=== PATIENT | female | born 1960 | race Caucasian/White ===

== ENCOUNTER 2017-02-05 04:03 | Emergency (ER) | payer BC ==
--- NOTE | 2017-02-05 04:30 | EDM.PDOC ---
ED HPI GENERAL MEDICAL PROBLEM - General Chief Complaint: Back Pain or Injury Stated Complaint: PAIN UNDER RIBCAGE AND RADIATING DOWN BACK Time Seen by Provider: 02/05/17 04:29 - History of Present Illness INITIAL COMMENTS - FREE TEXT/NARRATIVE: 56-year-old female presents emergency room with upper abdominal and back discomfort This started just before midnight this evening. She describes it as being epigastric and radiating into her upper back. She has not had any associated vomiting with this perhaps mild nausea. No other abdominal discomfort. She denies any recent illnesses. She's felt fairly well. Denies chest discomfort no breathing difficulties or shortness of breath. Past medical history is noncontributory her mother was a heavy smoker and had heart disease in her 60s. Patient's father had heart disease in his 70s. Upper Abdomen Pain Score (Numeric/FACES): 6 - Related Data Allergies Allergy/AdvReac Type Severity Reaction Status Date / Time No Known Allergies Allergy Verified 02/05/17 04:33 Home Meds: Home Meds . [No Known Home Meds] 02/05/17 [History] ED ROS GENERAL - Review of Systems Review Of Systems: See Below Constitutional: Reports: No Symptoms Respiratory: Reports: No Symptoms Cardiovascular: Reports: No Symptoms GI/Abdominal: Reports: Abdominal Pain, Nausea. Denies: Black Stool, Bloody Stool, Constipation, Diarrhea, Difficulty Swallowing, Hematemesis, Hematochezia , Vomiting : Reports: No Symptoms Musculoskeletal: Reports: No Symptoms Neurological: Reports: No Symptoms ED EXAM, GENERAL - Physical Exam Exam: See Below Exam Limited By: No Limitations General Appearance: Alert, No Apparent Distress Head: Atraumatic, Normocephalic Neck: Normal Inspection, Supple, Non-Tender, Full Range of Motion. No: Lymphadenopathy (L), Lymphadenopathy (R) Respiratory/Chest: No Respiratory Distress, Lungs Clear, Normal Breath Sounds, Chest Non-Tender Cardiovascular: Regular Rate, Rhythm, No Edema, No Murmur GI/Abdominal: Normal Bowel Sounds, Soft, Other (She has some epigastric discomfort and discomfort over her stomach. Directed palpation over the gallbladder does not cause any discomfort no other abdominal discomfort noted no rebound or guarding.) Back Exam: Normal Inspection, Other (Palpation over the area in her thoracic spine and back does not elicit the pain she was having and is for the most part nontender.). No: CVA Tenderness (L), CVA Tenderness (R), Paraspinal Tenderness , Vertebral Tenderness EKG INTERPRETATION EKG Date: 02/05/17 Rhythm: NSR [place]: normal P-wave: present QRS: other (Normal QRS low voltage in the extremity leads) ST-T: normal QT: normal Comparison: NA - no prior EKG Course - Vital Signs Last Recorded V/S: Last Vital Signs Temp 36.1 C 02/05/17 04:31 Pulse 59 L 02/05/17 04:31 Resp 13 02/05/17 04:31 BP 152/76 H 02/05/17 04:31 Pulse Ox 100 02/05/17 04:31 - Orders/Labs/Meds Orders: Active Orders 24 hr Category Date Time Status EKG 12 Lead [EKG Documentation Completion] [RC] STAT Care 02/05/17 05:28 Active Chest 1V Frontal [CR] Stat Exams 02/05/17 04:41 Taken Labs: Laboratory Tests 02/05/17 02/05/17 Range/Units 04:55 04:55 WBC 7.57 (3.98-10.04) K/mm3 RBC 4.39 (3.98-5.22) M/mm3 Hgb 13.4 (11.2-15.7) gm/L Hct 39.6 (34.1-44.9) % MCV 90.2 (79.4-94.8) fl MCH 30.5 (25.6-32.2) pg MCHC 33.8 (32.2-35.5) g/dl RDW Std Deviation 42.1 (36.4-46.3) fL Plt Count 280 (182-369) K/mm3 MPV 8.9 L (9.4-12.3) fl Neutrophils % (Manual) 68 H (40-60) % Band Neutrophils % 0 (0-10) % Lymphocytes % (Manual) 25 (20-40) % Atypical Lymphs % 0 % Monocytes % (Manual) 6 (2-10) % Eosinophils % (Manual) 0 L (0.7-5.8) % Basophils % (Manual) 1 (0.1-1.2) Platelet Estimate Adequate RBC Morph Comment Normal Sodium 143 (136-145) mEq/L Potassium 4.0 (3.5-5.1) mEq/L Chloride 107 (98-107) mEq/L Carbon Dioxide 29 (21-32) mEq/L Anion Gap 11.0 (5-15) BUN 17 (7-18) mg/dL Creatinine 0.9 (0.55-1.02) mg/dL Est Cr Clr Drug Dosing TNP Estimated GFR (MDRD) > 60 (>60) mL/min BUN/Creatinine Ratio 18.9 H (14-18) Glucose 130 H (74-106) mg/dL Calcium 9.0 (8.5-10.1) mg/dL Total Bilirubin 0.1 L (0.2-1.0) mg/dL AST 17 (15-37) U/L ALT 34 (14-59) U/L Alkaline Phosphatase 122 H (46-116) U/L Troponin I < 0.017 (0.00-0.056) ng/mL Total Protein 7.2 (6.4-8.2) g/dl Albumin 3.6 (3.4-5.0) g/dl Globulin 3.6 gm/dL Albumin/Globulin Ratio 1.0 (1-2) Meds: Medications Discontinued Medications Generic Name Dose Route Start Last Admin Trade Name Freq PRN Reason Stop Dose Admin Al Hydroxide/Mg Hydroxide 30 0 ml 02/05/17 04:40 02/05/17 04:46 ml/ Lidocaine HCl 15 ml PO 02/05/17 04:41 45 ml ONETIME ONE Administration Sucralfate 1 gm 02/05/17 05:12 02/05/17 05:26 Carafate PO 02/05/17 05:13 1 gm ONETIME ONE Administration - Re-Assessments/Exams Free Text/Narrative Re-Assessment/Exam: 02/05/17 05:20 She was given a GI cocktail that helped with her back discomfort perhaps minimal improvement in her stomach. 02/05/17 06:30 The patient received a dose of Carafate not sure this really helped too much with her stomach however her back pain did improve. Laboratory evaluation is unrevealing chest x-ray is normal. EKG no ischemia or acute changes. Repeat examination active bowel sounds she still has some epigastric discomfort she has significant pain on her anterior ribs as they go into the abdominal musculature with bilateral point tenderness in this area. With further questioning the patient did quite a bit of yard work yesterday and prior to this had been much more sedentary she wasn't allowed to walk after foot surgery in November and has not been doing too much so it is possible that she has an abdominal wall strain and chest wall strain. At this point the patient be discharged home she started on Pepcid over-the- counter 20 mg twice daily she will use Tylenol for discomfort. She has hydrocodone at home and will use this if needed. Departure - Departure Time of Disposition: 06:32 Disposition: Home, Self-Care 01 Clinical Impression: Abdominal wall strain, Strain of chest wall, Dyspepsia - Discharge Information Forms: ED Department Discharge Additional Instructions: Return to the emergency room with any questions or problems. 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 Use your extra strength Tylenol one or 2 every 6 hours as needed for pain. If this does not work try your hydrocodone the you have at home. Keep track of your Tylenol intake. Your hydrocodone contains 325 mg of Tylenol in a 24-hour. Do not exceed 4000 mg. Followup with your regular physician on Sunday or Sunday for a recheck consider gallbladder ultrasound if not improving. - My Orders Last 24 Hours: My Active Orders 02/05/17 04:41 Chest 1V Frontal [CR] Stat 02/05/17 05:28 EKG 12 Lead [EKG Documentation Completion] [RC] STAT - Assessment/Plan Last 24 Hours: My Active Orders 02/05/17 04:41 Chest 1V Frontal [CR] Stat 02/05/17 05:28 EKG 12 Lead [EKG Documentation Completion] [RC] STAT
[2017-02-05 04:33] VITALS: BP 152/76
[2017-02-05] MEDS ORDERED: Alum Hydrox/Mag Hydrox/Simeth 30 ML, Lidocaine 2% 15 ML PO ONE ×2 (04:40)
[2017-02-05] MEDS ORDERED: Sucralfate Suspension 1 GM/10 ML Cup PO ONE (05:12)
[2017-02-05] MEDS ORDERED: Famotidine 20 MG Tab PO ONE (06:35)
--- NOTE | 2017-02-05 12:40 | CR ---
Chest: Portable view of the chest was obtained. Comparison: No previous chest x-ray, previous chest CT of 03/03/10 is available. Findings: Heart size and mediastinum are within normal limits. Lungs are clear. Slightly lobulated right hemidiaphragm is seen which is felt to be incidental. Lungs are clear with no acute infiltrates. Bony structures are grossly intact. Impression: 1. Nothing acute is identified on portable chest x-ray. Diagnostic code #1
== END 2017-02-05 06:48 | disposition home or self-care (01) ==
LOC: JD.ED 04:03
DX: S39.011A Strain of muscle, fascia and tendon of abdomen, initial encounter (principal); S29.011A Strain of muscle and tendon of front wall of thorax, initial encounter; X58.XXXA Exposure to other specified factors, initial encounter
CPT/HCPCS: 36415; 71010; 80053; 84484; 85025; 93005; 99284; A9270; 99283